=== PATIENT | female | born 1930 | race Caucasian/White ===

== ENCOUNTER 2017-03-09 07:25 | Day surgery (SDC) | payer MEDICARE, BC ==
[~2017-03-09 07:25] MED LIST: Dextrose 5%-Lactated Ringers 1,000 ML IV SCH
[2017-03-09] MEDS ORDERED: Dextrose 5%-Lactated Ringers 1,000 ML IV SCH (08:00)
[2017-03-09] MEDS ORDERED: Propofol 200 MG/20 ML SDV ONE (08:08)
[2017-03-09 12:33] VITALS: BP 155/77
--- NOTE | 2017-03-13 13:09 | OR ---
DATE OF PROCEDURE: 03/09/2017 PREOPERATIVE DIAGNOSIS: Laryngopharyngeal dysphagia. POSTOPERATIVE DIAGNOSES: 1. Laryngopharyngeal dysphagia with normal larynx, hypopharynx, and upper esophageal sphincter. 2. Large hiatal hernia with minimal esophageal inflammation. 3. Very slight antral gastritis. PROCEDURE PERFORMED: Esophagogastroduodenoscopy with antral biopsies for CLOtest. ANESTHESIA: IV sedation. INDICATION FOR PROCEDURE: This is an 86-year-old presenting with some progressive laryngopharyngeal dysphagia. Plan is to proceed with an upper GI endoscopy with biopsies as indicated. Potential risks including bleeding and perforation were discussed, and the patient wishes to proceed. DETAILS OF PROCEDURE: The patient was taken to the operating room and placed in a left lateral decubitus position. IV sedation was administered, after which the upper GI endoscope was passed orally through the length of the esophagus and stomach, with retroflexion view of the fundus, and thereafter through the pyloric channel and into the proximal duodenum. The findings included normal hypopharynx, larynx, upper esophageal sphincter. As one entered the esophagus, the body was unremarkable. There was a fairly large hiatal hernia, but this was associated with essentially no grossly evident mucosal inflammation. There was no upward extension of the gastroesophageal junction mucosal line. Within the remainder of the stomach, there was some very mild redness within the antrum, pyloric channel, and duodenum and junction of the third and fourth portions were unremarkable. At this point, biopsies were taken from the antrum and sent for CLOtest for H. pylori. Minimal bleeding from the biopsy sites was seen and the procedure then concluded with removal of the scope. The patient was taken to the recovery room in satisfactory condition. Plan will be to set the patient up for an x-ray, swallow study, and speech pathology consult. 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 She should be following up with Dr. Edwards and/or Internal Medicine staff after the swallow study has been completed. Should be contacted if the CLOtest is positive to initiate an antibiotic course. Tony Lange MD /[id number]
== END 2017-03-09 12:47 | disposition home or self-care (01) ==
LOC: JP.SDS 07:25
PROVIDERS: ATTEND Surgery
DX: K44.9 Diaphragmatic hernia without obstruction or gangrene (principal); I10 Essential (primary) hypertension; E78.00 Pure hypercholesterolemia, unspecified; G47.33 Obstructive sleep apnea (adult) (pediatric); Z88.2 Allergy status to sulfonamides; Z88.8 Allergy status to other drugs, medicaments and biological substances
CPT/HCPCS: 43239; 87081; J2704; J7042